=== PATIENT | male | born 1995 | race African-American/Black ===

== ENCOUNTER 2023-06-09 00:04 | Emergency (ER) | payer MEDICAID ==
[~2023-06-09] VITALS: Ht 175.3 cm; Wt 68.0 kg
[~2023-06-09 00:04] MED LIST: NAPR500T6 PO
[2023-06-09] MEDS ORDERED: ONDANSETRON ODT 4 MG TAB.RAPDIS ONE (00:49)
[2023-06-09] MEDS ORDERED: LORAZEPAM 0.5 MG TABLET ONE (00:49)
[2023-06-09] MEDS ORDERED: LORAZEPAM 0.5 MG TABLET PO ONE (01:00)
[2023-06-09] MEDS ORDERED: ONDANSETRON ODT 4 MG TAB.RAPDIS SL ONE (01:00)
[2023-06-09 01:13] VITALS: BP 141/84; O2SAT 97
== END 2023-06-09 01:34 | disposition home or self-care (01) ==
LOC: ER 00:17
DX: Z00.00 Encounter for general adult medical examination without abnormal findings (principal); Z59.00 Homelessness unspecified; Z79.899 Other long term (current) drug therapy
CPT/HCPCS: A4606; A4663; Q0162